=== PATIENT | female | born 1965 | race African-American/Black ===

== ENCOUNTER 2016-10-08 13:46 | Emergency (ER) | payer OTHER ==
[~2016-10-08] VITALS: Ht 160 cm; Wt 105.2 kg
[2016-10-08 13:59] VITALS: BP 148/82
--- NOTE | 2016-10-08 14:13 | PHYS DOC ---
Past Medical History Past Medical History: Hypertension Past Surgical History: Hysterectomy, Tubal ligation Alcohol Use: None Drug Use: None Adult General Chief Complaint Chief Complaint: FLANK PAIN HPI HPI Patient is a 51 year old female with history of hypertension who presents with bilateral low back pain that has been going on intermittently for 2 weeks. Patient denies any trauma. Denies pain radiating to bilateral lower extremities. Denies any loss of bowel bladder function. She states she believes she has a UTI and would like to be checked for it. Patient denies any urgency frequency or dysuria. Review of Systems Review of Systems Constitutional: Denies fever or chills [] Eyes: Denies change in visual acuity, redness, or eye pain [] HENT: Denies nasal congestion or sore throat [] Respiratory: Denies cough or shortness of breath [] Cardiovascular: No additional information not addressed in HPI [] GI: Denies abdominal pain, nausea, vomiting, bloody stools or diarrhea [] : Denies dysuria or hematuria [] Musculoskeletal: Low back pain Integument: Denies rash or skin lesions [] Neurologic: Denies headache, focal weakness or sensory changes [] Endocrine: Denies polyuria or polydipsia [] Allergies Allergies Allergies Coded Allergies Type Severity Reaction Last Updated Verified No Known Drug Allergies 10/08/16 No Physical Exam Physical Exam Constitutional: Well developed, well nourished, no acute distress, non-toxic appearance. [] HENT: Normocephalic, atraumatic, bilateral external ears normal, oropharynx moist, no oral exudates, nose normal. [] Eyes: PERRLA, EOMI, conjunctiva normal, no discharge. [] Neck: Normal range of motion, no tenderness, supple, no stridor. [] Cardiovascular:Heart rate regular rhythm, no murmur [] Lungs & Thorax: Bilateral breath sounds clear to auscultation [] Abdomen: Bowel sounds normal, soft, no tenderness, no masses, no pulsatile masses. [] Skin: Warm, dry, no erythema, no rash. [] Back: Diffuse paraspinal muscle tenderness to bilateral low lumbar region, no midline tenderness, no CVA tenderness. [] Extremities: No tenderness, no cyanosis, no clubbing, ROM intact, no edema. [] Neurologic: Alert and oriented X 3, normal motor function, normal sensory function, no focal deficits noted. [] Psychologic: Affect normal, judgement normal, mood normal. [] Current Patient Data Vital Signs Vital Signs Date Time Temp Pulse Resp B/P (MAP) Pulse Ox O2 Delivery O2 Flow Rate FiO2 10/08/16 13:59 98.0 68 16 148/82 (104) 99 Room Air 98.0 Lab Values Laboratory Tests Test 10/08/16 14:05 Urine Collection Type Unknown Urine Color Yellow Urine Clarity Clear Urine pH 6.0 Urine Specific [place] 1.025 Urine Protein Negative mg/dL (NEG-TRACE) Urine Glucose (UA) Negative mg/dL (NEG) Urine Ketones (Stick) Negative mg/dL (NEG) Urine Blood Negative (NEG) Urine Nitrite Negative (NEG) Urine Bilirubin Negative (NEG) Urine Urobilinogen Dipstick 0.2 mg/dL (0.2 mg/dL) Urine Leukocyte Esterase Small (NEG) Urine RBC 0 /HPF (0-2) Urine WBC 1-4 /HPF (0-4) Urine Squamous Epithelial Cells Mod /LPF Urine Bacteria Few /HPF (0-FEW) Urine Mucus Marked /LPF EKG EKG [] Radiology/Procedures Radiology/Procedures [] Course & Med Decision Making Course & Med Decision Making Pertinent Labs and Imaging studies reviewed. (See chart for details) Patient is in the ED with bilateral low back pain with no known injury. Patient states she believes she has a UTI as well as back pain and would like to be tested for UTI. Urine positive for small amount of leukocytes though it appears contaminated culture ordered. Gave her prescription for Bactrim for 3 days. Discharged with Flexeril and Tylenol 3 as needed for pain. Follow-up with PCP in 1-2 weeks. Dragon Disclaimer Dragon Disclaimer This electronic medical record was generated, in whole or in part, using a voice recognition dictation system. Departure Departure Impression: Primary Impression: Urinary tract infection Additional Impression: Back pain Disposition: 01 HOME, SELF-CARE Condition: STABLE Patient Instructions: Back Pain, Adult, Urinary Tract Infection Additional Instructions: You were seen for back pain and urinary tract infection. Ensure you complete your antibiotics. Take the rest of the prescribed medicines as ordered. Follow- up with your own doctor in one week. Scripts Acetaminophen With Codeine (TYLENOL WITH CODEINE #3 TABLET) 1 Each Tablet 1 TAB PO PRN Q6HRS Y for PAIN, #30 TAB Prov: MUTUNGA,MATEO YAAKOV 10/08/16 Cyclobenzaprine Hcl (CYCLOBENZAPRINE HCL) 10 Mg Tablet 1 TAB PO TID, #30 TAB Prov: MATEO MURILLO YAAKOV 10/08/16 Sulfamethoxazole/Trimethoprim (BACTRIM DS TABLET) 1 Each Tablet 1 TAB PO BID, #6 TAB Prov: MATEO MURILLO YAAKOV 10/08/16 Problem Qualifiers Primary Impression: Urinary tract infection Urinary tract infection type: acute cystitis Hematuria presence: without hematuria Qualified Codes: N30.00 - Acute cystitis without hematuria Additional Impression: Back pain Back pain location: low back pain Chronicity: acute Back pain laterality: bilateral Sciatica presence: without sciatica Qualified Codes: M54.5 - Low back pain MATEO MURILLO YAAKOV October 08, 2016 14:13
[2016-10-08 14:15] LABS: BILIRUBIN,URINE NEGATIVE (NEG); GLUCOSE,URINE NEGATIVE (NEG); NITRITE,URINE NEGATIVE (NEG); PROTEIN,URINE NEGATIVE (NEG-TRACE); UROBILINOGEN,URINE 0.2 mg/dL (0.2 mg/dL)
[2016-10-08 14:20] LABS: BACTERIA,URINE FEW /HPF (0-FEW); RBC,URINE 0 /HPF (0-2); SQUAMOUS EPITHELIAL CELL,UR MOD /LPF
[2016-10-08] MEDS ORDERED: SULF1TAB24 PO (14:37)
[2016-10-08] MEDS ORDERED: CYCL10TA2 PO (14:37)
[2016-10-08] MEDS ORDERED: ACET-704 PO (14:40)
== END 2016-10-08 14:51 | disposition home or self-care (01) ==
LOC: ER 13:46
DX: N30.00 Acute cystitis without hematuria (principal); M54.5 Low back pain; I10 Essential (primary) hypertension; Z98.51 Tubal ligation status; Z90.710 Acquired absence of both cervix and uterus
CPT/HCPCS: 81001; 87086; 99284